=== PATIENT | female | born 1940 | race Caucasian/White ===

== ENCOUNTER 2020-01-10 10:53 | Outpatient (CLI) | payer MEDICARE, SELFPAY ==
--- NOTE | 2020-01-10 10:58 | ECG_ITS ---
Measurements Intervals [place] Rate: 70 P: 78 [place]: 142 QRS: -73 QRSD: 105 T: 70 QT: 377 QTc: 408 Interpretive Statements SINUS RHYTHM ATRIAL PREMATURE COMPLEX INFERIOR INFARCT, AGE INDETERMINATE EXTENSIVE ANTERIOR INFARCT, AGE INDETERMINATE BORDERLINE T WAVE ABNORMALITY- HIGH LATERAL LEADS BASELINE ARTIFACT- I, III, AVL ABNORMAL ECG Electronically Signed On 01-10-2020 11:32:17 CDT by Wes Vazquez D.O.
[2020-01-10 11:35] LABS: Basophils Absolute Auto 0.1 K/mm3 (0.0-0.1); Basophils Percent Auto 0.9 % (0.2-1.2); Eosinophils Absolute Auto 0.3 K/mm3 (0-0.3); Eosinophils Percent Auto 1.8 % (0-4.4); Hematocrit 46.6 % (37.0-47.0); Hemoglobin 14.8 g/dL (12.0-15.0); Immature Granulocyte Absolute 0.05 K/mm3 (0.00-0.031); Immature Granulocyte Percent A 0.4 % (0-0.5); Lymphocytes Absolute Auto 1.64 K/mm3 (0.9-3.2); Lymphocytes Percent Auto 11.7 % (18.3-44.2); Mean Corpuscular HGB Conc 31.8 g/dl (32-36); Mean Corpuscular Hemoglobin 26.9 pg (26-34); Mean Corpuscular Volume 84.6 fl (80-100); Mean Platelet Volume 10.3 fl (7.4-10.4); Monocytes Absolute Auto 1.2 K/mm3 (0.1-0.6); Monocytes Percent Auto 8.8 % (2.6-8.5); Neutrophils Absolute Auto 10.7 K/mm3 (1.3-6.7); Neutrophils Percent Auto 76.4 % (45.5-73.1); Platelet Count Result 242 k/mm3 (150-375); Red Blood Count 5.51 M/mm3 (4.2-5.4)
[2020-01-10 11:48] LABS: Alanine Aminotransferase 14 U/L (4-35); Albumin Level 4.7 g/dL (3.5-5.1); Alkaline Phosphatase 48 U/L (38-126); Anion Gap 9 mmol/L (8-16); Aspartate Amino Transferase 25 U/L (14-36); Bilirubin,Total 0.7 mg/dL (0.2-1.3); Blood Urea Nitrogen 17 mg/dL (7-17); Carbon Dioxide 31 mmol/L (22-30); Chloride 103 mmol/L (98-107); Estimated Glomerular Filt Rate 60; Glucose 92 mg/dL (65-105); INR 1.1; Potassium 3.9 mmol/L (3.4-5.0); Prothrombin Time 13.8 Seconds (11.1-14.7); Sodium 143 mmol/L (137-145)
[2020-01-10 11:49] LABS: Partial Thromboplastin Time 32.8 SECONDS (22.3-36.8)
== END 2020-01-10 10:54 | disposition home or self-care (01) ==
PROVIDERS: PCP Family Medicine; Visit Provider Urology
DX: Z01.818 Encounter for other preprocedural examination (principal); N81.10 Cystocele, unspecified; I10 Essential (primary) hypertension; R94.31 Abnormal electrocardiogram [ECG] [EKG]
CPT/HCPCS: 36415; 80053; 85025; 85610; 85730; 86850; 86900; 86901; 87086; 93005

== ENCOUNTER 2020-01-17 01:33 | Outpatient (CLI) | payer MEDICARE, SELFPAY ==
[2020-01-18 03:00] LABS: SARS-CoV-2 RNA PCR Negative
== END 2020-01-17 01:34 | disposition home or self-care (01) ==
LOC: ANHCOVIDDT 01:33
PROVIDERS: PCP Family Medicine; Visit Provider Urology
DX: Z01.812 Encounter for preprocedural laboratory examination (principal); Z11.59 Encounter for screening for other viral diseases
CPT/HCPCS: 87635; C9803; U0003

== ENCOUNTER 2020-01-19 01:22 | Day surgery (SDC) | payer MEDICARE, SELFPAY ==
[2020-01-08 14:55] VITALS: BMI 24.5
--- NOTE | 2020-01-14 11:10 | PM.IMHP ---
H&P: HPI History of Present Illness Date/Time: 01/14/20 11:10 Chief complaint: vaginal vault prolapse Narrative: Maryann Woodward is a 79 year old female POP and urinary retention. She does CIC, but uis having issues due to the POP Review of Systems Review of Systems: All systems reviewed & are unremarkable except as noted in HPI and below PMFSH Social History Social History Smoking status: Former smoker Tobacco type: cigarettes Additional smoking assessment comments: 03/15/69 Spiritual care concerns: No Meds Home Medications and Allergies Home Medications Medication Instructions Recorded Confirmed Type cephalexin 250 mg PO HS 01/08/20 01/08/20 History cholecalciferol (vitamin D3) 20 mcg PO DAILY 01/08/20 01/08/20 History donepezil 5 mg PO QAM 01/08/20 01/08/20 History donepezil 10 mg PO HS 01/08/20 01/08/20 History ferrous sulfate 325 mg PO DAILY 01/08/20 01/08/20 History hydrochlorothiazide 12.5 mg PO QAM 01/08/20 01/08/20 History magnesium oxide 400 mg PO QPM 01/08/20 01/08/20 History memantine 10 mg PO BID 01/08/20 01/08/20 History mirtazapine 30 mg PO HS 01/08/20 01/08/20 History potassium chloride 20 meq PO QAM 01/08/20 01/08/20 History Allergies Allergy/AdvReac Type Severity Reaction Status Date / Time diclofenac [From Voltaren] Allergy Abdominal Verified 01/08/20 15:46 Pain Sulfa (Sulfonamide Allergy Hallucinati Verified 01/08/20 15:46 Antibiotics) ng sulfamethoxazole Allergy Unknown Verified 01/08/20 15:46 [From Septra] trimethoprim [From Septra] Allergy Unknown Verified 01/08/20 15:46 Exam Const: General: cooperative and healthy appearing HENMT: Mouth: Yes Normal oral and palatal mucosa present Resp: Effort & Inspection: normal respiratory effort : Speculum Exam - Vagina: normal palpation (apex at +4) Skin: General skin exam: normal color Assessment and Plan Assessment and plan (1) Prolapse of vaginal vault after hysterectomy: Code(s): N99.3 - Prolapse of vaginal vault after hysterectomy Status: Acute Assessment and Plan: colpocleisis (2) Urinary retention with incomplete bladder emptying: Code(s): R33.9 - Retention of urine, unspecified Status: Acute Assessment and Plan: Has done CIC for many years
--- NOTE | 2020-01-18 10:38 | P.PNAN_ITS ---
Anes - Initial Pre Proc Eval Procedure: Operation Date: 01/19/20 12:30 Proposed Procedures p Colpocleisis - Jarred Guadarrama MD Date/Time: 01/18/20 10:38 Surgeon: Jarred Guadarrama MD Pre Op Diagnosis: vaginal vault prolapse Patient Data Age: 79 Gender: F Height: 1.57 m Weight: 60.78 kg Allergies Allergy/AdvReac Type Severity Reaction Status Date / Time diclofenac [From Voltaren] Allergy Abdominal Verified 01/08/20 15:46 Pain Sulfa (Sulfonamide Allergy Hallucinati Verified 01/08/20 15:46 Antibiotics) ng sulfamethoxazole Allergy Unknown Verified 01/08/20 15:46 [From Novra] trimethoprim [From ] Allergy Unknown Verified 01/08/20 15:46 Home Medications Medication Instructions Recorded Confirmed Type cephalexin 250 mg PO HS 01/08/20 01/08/20 History cholecalciferol (vitamin D3) 20 mcg PO DAILY 01/08/20 01/08/20 History donepezil 5 mg PO QAM 01/08/20 01/08/20 History donepezil 10 mg PO HS 01/08/20 01/08/20 History ferrous sulfate 325 mg PO DAILY 01/08/20 01/08/20 History hydrochlorothiazide 12.5 mg PO QAM 01/08/20 01/08/20 History magnesium oxide 400 mg PO QPM 01/08/20 01/08/20 History memantine 10 mg PO BID 01/08/20 01/08/20 History mirtazapine 30 mg PO HS 01/08/20 01/08/20 History potassium chloride 20 meq PO QAM 01/08/20 01/08/20 History ECG: Date of Service: 01/10/20 Procedure(s): CA 12 lead EKG Accession Number(s): [id number] cc: ~ Measurements Intervals [place] Rate: 70 P: 78 [place]: 142 QRS: -73 QRSD: 105 T: 70 QT: 377 QTc: 408 Interpretive Statements SINUS RHYTHM ATRIAL PREMATURE COMPLEX INFERIOR INFARCT, AGE INDETERMINATE EXTENSIVE ANTERIOR INFARCT, AGE INDETERMINATE BORDERLINE T WAVE ABNORMALITY- HIGH LATERAL LEADS BASELINE ARTIFACT- I, III, AVL ABNORMAL ECG Electronically Signed On 01-10-2020 11:32:17 CDT by Wes George D.O. Dictated By: Wes Vazquez DO 01/10/20 1150 Patient hx anesthesia problems: none Family hx anesthesia problems: none PMFSH Past Medical History Medical History (Updated 01/18/20 @ 10:40 by Kian Abreu MD) Dementia HTN (hypertension) Osteoporosis Social History Social History Smoking status: Former smoker Tobacco type: cigarettes Additional smoking assessment comments: 03/15/69 Living arrangements: with family Spiritual care concerns: No Anes - Eval Final PreProcedure Day of Procedure 01/18/20 10:38 Patient weight: normal Heart: regular rate and rhythm Lungs: clear to auscultation and normal air movement Airway: Mallampati scale class II Neurological: alert and oriented Last oral intake: >/= 8 hours ASA classification: III Emergent: no Anesthetic plan: proceed Anesthesia type and monitoring: general LMA and ETT Informed Consent: The patient's anesthetic plan and its attendant risks and benefits were discussed with the patient/family/POA. Questions were solicited and answers provided to the satisfaction of the patient/family/POA.
[2020-01-19] VITALS (7 sets, daily range): BP systolic 111–147; BP diastolic 60–77; PULSE 71–90; RESP 15–24; TEMP 36.6–37; O2SAT 93–98; BMI 24.7
--- NOTE | 2020-01-19 11:10 | WPDHPUPDATE1 ---
History and Physical Update Update Date/Time: 01/19/20 11:10 History and Physical has been reviewed, including an updated exam of the patient. There are NO changes in the patient's condition. Risks, benefits, and alternatives have been discussed and questions answered. Patient agrees to proceed with procedure.
[2020-01-19] MEDS: LACTATED RINGERS 1,000 ML 30 ML IV CONT (11:42)
--- NOTE | 2020-01-19 11:51 | SUR.PREOP ---
1045; DAUGHTER, SHARLA, WITH PT. SHE SIGNS CONSENTS DUE TO PT HAVING DEMENTIA. PT ALERT AND ORIENTED TO SELF, VERY FORGETFUL.
[2020-01-19] MEDS: ceFAZolin 2 GM/D5W 50 ML 2 GM/50 ML BAG IVPB (12:39)
[2020-01-19] MEDS: KETOROLAC 30 MG/ML VIAL (*BKC) 15 MG IV PUSH (13:51)
--- NOTE | 2020-01-19 13:56 | P.OP_ITS ---
Procedure Note - Detailed Date of procedure: 01/19/20 Pre-op diagnosis: vaginal vault prolapse Vaginal vault prolapse female perineal laxity Post-op diagnosis: same Procedure performed: colpocleisis perineorrhaphy Description of procedure: she was correctly identified and informed consent obtained. She from the operating room. She was given general anesthesia. She was placed in dorsal spine position. All pressure points padded. She scan appropriate perioperative antibiotics. A time-out performed. She does self catheterization. We are doing this colpocleisis to for her on self catheterization. She understands risks of bleeding, infection, recurrence a prolapse, demonstrating organs, postoperative voiding dysfunction, incontinence, continued retention. placed a [place] retractor clear. I placed a [place] catheter. I anesthetized the posterior vaginal wall. I removed the mucosa of the posterior vaginal wall. The same on the anterior vaginal wall. I then performed a classic colpocleisis. I used 0 Vicryl suture in a pursestring fashion. Once the prolapse was reduced I used a 0 Vicryl in an interrupted horizontal mattress fashion to close mucosa to mucosa completing the colpocleisis. I then marked out a nette-shaped area of skin on the perineum. I removed this area skin. I performed a perineorrhaphy. I used 0 Vicryl suture do this. I then used Schueler Vicryl to close the mucosa. On cystoscopy she had moderate trabeculation. There is no tumors or other abnormalities. Both ureters were cleared by passing a guidewire up document patency. I left the bladder moderately full. She does self catheterization. She was awakened and transferred to the PACU in stable condition. Anesthesia: GLMA Surgeon: Jarred Guadarrama MD Estimated blood loss (mL): 30 Drains: No Packing: No Pathology: none sent Complications: No immediate complications Condition: stable Disposition: PACU
--- NOTE | 2020-01-19 15:14 | SUR.PHASEII ---
1500- pt assisted to bathroom per wheelchair. Straight cathed self. daughter assisted pt and states had a full bladder.
== END 2020-01-19 15:55 | disposition home or self-care (01) ==
PROVIDERS: PCP Family Medicine; Visit Provider Urology
PROC: (CPT 57120; principal; 2020-01-19 12:30)
DX: N99.3 Prolapse of vaginal vault after hysterectomy (principal); R33.9 Retention of urine, unspecified; I10 Essential (primary) hypertension; F03.90 Unspecified dementia, unspecified severity, without behavioral disturbance, psychotic disturbance, mood disturbance, and anxiety; M81.0 Age-related osteoporosis without current pathological fracture; Z87.891 Personal history of nicotine dependence
CPT/HCPCS: 57120; A9270; C1758; C1769; J0690; J1885; J3010; J7120